=== PATIENT | female | born 1960 | race Caucasian/White ===

== ENCOUNTER → 2024-01-17 15:02 | Outpatient (REF) | payer BC, SELFPAY | LOC: WDC 15:02 | PROVIDERS: ATTENDING PHYSICIAN Obstetrics & Gynecology; FAMILY PHYSICIAN Family Medicine | DX: Z12.31 Encounter for screening mammogram for malignant neoplasm of breast (principal) | CPT/HCPCS: 77063; 77067 ==

== ENCOUNTER → 2024-01-31 08:19 | Outpatient (REF) | payer BC, SELFPAY | LOC: RAD 08:19 | PROVIDERS: ATTENDING PHYSICIAN Obstetrics & Gynecology; FAMILY PHYSICIAN Family Medicine | DX: R29.890 Loss of height (principal) | CPT/HCPCS: 77080 ==

== ENCOUNTER → 2025-01-19 16:36 | Outpatient (REF) | payer BC, MEDICARE, SELFPAY | LOC: WDC 16:36 | PROVIDERS: ATTENDING PHYSICIAN Obstetrics & Gynecology; FAMILY PHYSICIAN Family Medicine | DX: Z12.31 Encounter for screening mammogram for malignant neoplasm of breast (principal) | CPT/HCPCS: 77063; 77067 ==

== ENCOUNTER → 2025-02-20 08:23 | Outpatient (REF) | payer BC, MEDICARE, SELFPAY | LOC: PAVMRI 08:23 | PROVIDERS: ATTENDING PHYSICIAN Internal Medicine Cardiovascular Disease; FAMILY PHYSICIAN Family Medicine | DX: I51.7 Cardiomegaly (principal) | CPT/HCPCS: 75561; 75565; A9585 ==